=== PATIENT | female | born 1950 | race Caucasian/White ===

== ENCOUNTER → 2017-06-22 | Outpatient (CLI) | payer OTHER ==
[~2017-06-22] MED LIST: CO Q-10100 MG PO; FISH OIL 1,001000 M2 PO; FLONASE 0.05%50 MCG NASAL; IBUPROFEN 200200 M1 PO; MULTIVITAMINS1 EAC7 PO; NORCO 10-325 T1 EACH PO; NORVASC5 MG PO; PROCOSA PO; SUPER CAL-MAG1 EACH PO; TRAMADOL 50 MG50 MG PO; TUMS PO; VITAMIN D-32000 UNIT PO; XARELTO10 MG PO; [UNRECOGNIZED DRUG - OTHER] PO
== END ==
LOC: CAT 09:11
DX: K57.92 Diverticulitis of intestine, part unspecified, without perforation or abscess without bleeding (principal); N20.0 Calculus of kidney; J98.11 Atelectasis; M41.84 Other forms of scoliosis, thoracic region; J98.4 Other disorders of lung; M47.896 Other spondylosis, lumbar region

== ENCOUNTER 2018-04-11 23:33 | Inpatient (IN) | payer OTHER ==
[~2018-04-11] VITALS: Ht 160 cm; Wt 53.1 kg
[2018-04-11 23:33] VITALS: BP 124/89
[~2018-04-11 23:33] MED LIST changes: +ATIVAN0.5 MG PO; +DOXYCYCLINE 10100 MG PO; +FLAGYL500 MG PO
[2018-04-12 00:24] LABS: URINE BILIRUBIN NEGATIVE (Negative); URINE BLOOD 1+ (Negative); URINE CLARITY CLEAR; URINE COLOR YELLOW; URINE GLUCOSE-RANDOM* NEGATIVE (Negative); URINE KETONES 1+ (Negative); URINE NITRITE-REFLEX NEGATIVE (Negative); URINE PROTEIN (DIPSTICK) 1+ (Negative); URINE SPECIFIC GRAVITY 1.025 (1.005-1.035); URINE UROBILINOGEN 0.2 E.U./dl (0.2-1.0)
[2018-04-12 00:25] LABS: URINE LEUKOCYTES-REFLEX 2+ (Negative)
[2018-04-12 00:37] LABS: AMORPHOUS URATES Few /LPF (None Seen); COARSE GRANULAR CASTS 0-3 Few /LPF (None Seen); FINE GRANULAR CASTS 0-3 Few /LPF (None Seen); HYALINE CASTS 0-3 Few /LPF (None Seen); MUCUS 4-6 Moderate strn/LPF (None Seen); SQUAMOUS 0-3 Few /LPF (0-3); URINE RBC 3-10 Few /HPF (0-2); URINE WBC-REFLEX 6-15 Few /HPF (0-5)
[2018-04-12 00:38] LABS: URIC ACID CRYSTALS 0-3 Few /LPF (None Seen)
[2018-04-12 01:47] LABS: ABSOLUTE NEUTROPHILS 8.1 thou/uL (1.4-8.2); BASOPHILS 0.1 % (0.0-2.0); EOSINOPHILS 1.2 % (0.0-3.0); HEMATOCRIT 36.8 % (37.0-47.0); HEMOGLOBIN 12.5 gm/dL (12.0-15.0); LYMPHOCYTES 6.7 % (24.0-44.0); MCH 28.3 pg (26.0-34.0); MCHC 34.1 g/dL (28.0-37.0); MCV 82.9 fL (80.0-100.0); MONOCYTES 4.5 % (1.0-8.0); PLATELET COUNT 218 thou/uL (150-400); POLYS 87.5 % (36.0-66.0); RBC 4.44 mil/uL (4.20-5.00); RDW 13.2 % (10.5-14.5); WBC 9.3 thou/uL (4.0-11.0)
[2018-04-12 01:55] LABS: ANION GAP 11 mmol/L (7-16); BUN 11 mg/dL (7-18); CALCIUM 9.8 mg/dL (8.5-10.1); CHLORIDE 95 mmol/L (98-107); CO2 28 mmol/L (21-32); CREATININE 0.6 mg/dL (0.6-1.0); GLUCOSE 126 mg/dL (74-106); POTASSIUM 3.4 mmol/L (3.5-5.1); SODIUM 134 mmol/L (136-145)
[2018-04-12 02:04] LABS: ALBUMIN 3.2 g/dL (3.4-5.0); LIPASE 59 U/L (73-393); SGOT 21 U/L (15-37); SGPT 18 U/L (30-65); TROPONIN-I <0.06 ng/mL (<0.06)
--- NOTE | 2018-04-12 02:14 | NUR ---
PATIENT TO CT SCAN AT THIS TIME
--- NOTE | 2018-04-12 02:14 | NUR ---
PATIENT WAS IN WAITING ROOM FOR OVER 1.5 HOURS.
[2018-04-12 03:57] VITALS: BP 109/70
[2018-04-12 04:28] VITALS: BP 100/63
[2018-04-12 05:04] VITALS: BP 107/72
[2018-04-12 07:56] VITALS: BP 110/76
--- NOTE | 2018-04-12 08:07 | EKG ---
[address] [place] [address] ELECTROCARDIOGRAM REPORT Name: BENJI CRISTINA Room #: 461-P [facility] IN M.R.#: [id number] ������������������ Admission: 04/12/18 ������������������ Attend Phys: Devonte Dhillon MD Discharge: ������������������ Date of : 46 Report #: [id number] ����������������������������������������������������������������� [id number] THIS REPORT FOR: //name// [facility] ED Test Date: 2018-04-12 Test Time: 02:56:17 Pat Name: BENJI CRISTINA Department: Room: 461 Gender: F Service Correspondent: marilyn : 1950 Requested By: Teto Gerardo Order Number: [id number] MD: Rick Arredondo Measurements Intervals [place] Rate: 79 P: 56 [place]: 146 QRS: 14 QRSD: 94 T: 35 QT: 381 QTc: 437 Interpretive Statements Sinus rhythm Low voltage, precordial leads Compared to ECG 02/19/2014 09:23:05 [place] is shifted rightward criteria for inferior infarct no longer present Electronically Signed On 04-12-2018 8:07:34 CONCRETE POINTER by Rick Arredondo [email or web address] ��������������������������������������������� <ELECTRONICALLY SIGNED> ���������������������������������������� By: Rick Arredondo MD, [facility] ��������������������������������������������� 04/12/18 0807 [id number] 0256 Rick Arredondo MD, [facility] /EPI
[2018-04-12 08:13] LABS: MAGNESIUM 1.9 mg/dL (1.8-2.4)
--- NOTE | 2018-04-12 08:22 | EKG ---
[address] [address] ELECTROCARDIOGRAM REPORT Name: BENJI CRISTINA Room #: 461- ADM IN .R.#: [id number] ������������������ Admission: 04/12/18 ������������������ Attend Phys: Devonte Dhillon MD Discharge: ������������������ Date of : 46 Report #: [id number] ����������������������������������������������������������������� [id number] THIS REPORT FOR: //name// [facility] ED Test Date: 2018-04-11 Test Time: 09:45:21 Pat Name: BENJI CRISTINA Department: Room: 461 Gender: F Roll Former: RADHAG : 1950 Requested By: Devonte Dhillon Order Number: [id number] MD: Rick Arredondo Measurements Intervals [place] Rate: 72 P: -19 [place]: 255 QRS: -48 QRSD: 109 T: 58 QT: 392 QTc: 430 Interpretive Statements Sinus rhythm Prolonged [place] interval Nonspecific intraventricular conduction delay Inferior infarct, old Compared to ECG 02/19/2014 09:23:05 Criteria for inferior infarct now present Ventricular premature complex(es) no longer present intraventricular conduction delay now present Electronically Signed On 04-12-2018 8:22:36 [employer] TEACH[employer] by Rick Arredondo [email or web address] ��������������������������������������������� <ELECTRONICALLY SIGNED> ���������������������������������������� By: Rick Arredondo MD, [facility] ��������������������������������������������� 04/12/18 0822 [id number] 0945 Rick Arredondo MD, [facility] /EPI
--- NOTE | 2018-04-12 14:14 | NUR ---
ASSUMED CARE AT 0700. AXOX4. SBO. SEEN BY GI AND SURGERY. KEPT NPO. K+ REPLCAED. BOWEL SOUNDS PRESENT IN ALL 4 QUADS. ON ZOSYN. NO S/S ACUTE DISTRESS NOTED OR REPORTED AT THIS TIME. WILL CONT TO MONITOR FOR ANY CHANGES IN CONDITION.
[2018-04-12 14:32] VITALS: BP 106/56
[2018-04-12 20:01] VITALS: BP 115/63
--- NOTE | 2018-04-13 04:48 | NUR ---
ASSUMED CARE AT START OF SHIFT PT DENIES N/V OR ABD PAIN , UP TO BATHROOM GAIT STEADY, IV INTACT AND INFUSING WELL. RESTED WELL THROUGHOUT HOURLY ROUNDS. WILL CONINTUE WITH CURRENT PLAN OF CARE.
[2018-04-13 05:18] LABS: ABSOLUTE NEUTROPHILS 3.7 thou/uL (1.4-8.2); BASOPHILS 0.4 % (0.0-2.0); EOSINOPHILS 4.5 % (0.0-3.0); HEMATOCRIT 30.9 % (37.0-47.0); LYMPHOCYTES 15.6 % (24.0-44.0); MCH 27.8 pg (26.0-34.0); MCHC 32.7 g/dL (28.0-37.0); MONOCYTES 7.6 % (1.0-8.0); PLATELET COUNT 206 thou/uL (150-400); POLYS 71.9 % (36.0-66.0); RBC 3.64 mil/uL (4.20-5.00); RDW 12.9 % (10.5-14.5); WBC 5.2 thou/uL (4.0-11.0)
[2018-04-13 05:36] LABS: CREATININE 0.6 mg/dL (0.6-1.0); MAGNESIUM 1.8 mg/dL (1.8-2.4); POTASSIUM 3.6 mmol/L (3.5-5.1)
[2018-04-13 05:43] VITALS: BP 107/59
[2018-04-13 05:46] LABS: HEMOGLOBIN 10.1 gm/dL (12.0-15.0)
[2018-04-13 08:00] VITALS: BP 124/72
[2018-04-13 14:25] VITALS: BP 127/52
--- NOTE | 2018-04-13 16:31 | NUR ---
PT ADMITTED RELATED TO SBO. CM REVIEWED CHART AND SPOKE WITH CARE TEAM. CM MET WITH PT AT BEDSIDE THIS DAY. PT IS A&O X4. CM ROLE INTRODUED. PT INDICATED SHE LIVES ALONE IN A HOUSE WITH 1 STEP TO ENTER AND A FULL FLIGHT OF STEPS INSIDE. PT INDICATED SHE IS MOVING TO [place] AT THE END OF THE MONTH. 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 PT INDICATED SHE ANTICPATES RETURNING HOME ONCE MEDICALLY STABLE. CM TO FOLLOW INDICATED WITH DC PLANNING.
[2018-04-13 19:20] VITALS: BP 141/94
--- NOTE | 2018-04-13 19:33 | NUR ---
PT ALERT AND ORIENTED TIME FOUR, VSS, 97%RA, IVF INFUSING PER ORDER. PT STARTED SOFT DIET FOR LUNCH THIS EVENING STATES SHE DOES NOT FEEL GOOD DUE TO EATING LUNCH. PT REFUSED DINNER. WILL CONTINUE TO MONITOR.
[2018-04-14 03:28] VITALS: BP 109/61
--- NOTE | 2018-04-14 04:38 | NUR ---
ASSUMED CARE AT START OF SHIFT PT C/O ABD PAIN AND LOOSE STOOL, WITH HEADACHE. TYLENOL PO GIVEN WITH ATIVAN. PT HAD 3 LOOSE STOOLS THROUGHOUT HOURLY ROUNDS, CONINTUE TO C/O HEADACHE WHICH IS DECRIBED INTERMITTMENT. IV FLUIDS CONINTUED, WILL FOLLOW CURRENT PLAN OF CARE.
[2018-04-14 07:45] VITALS: BP 124/79
[2018-04-14] MEDS ORDERED: FLAGYL500 M1 PO (09:50)
[2018-04-14] MEDS ORDERED: LEVAQUIN 500 M500 M2 PO (09:52)
--- NOTE | 2018-04-14 10:19 | NUR ---
ASSUMED CARE AT 0700. A/OX4, DENIES PAIN, VSS. ABLE TO MAKE NEEDS KNOWN. DENIES ABD PAIN. WANTS TO GO HOME. ANXIOUS ABOUT MOVE OUT OF STATE. SEEN BY DR NATARAJAN TO BE TX'S HOME TODAY WITH [employer] AND [employer]. CALL LIGHT IN REACH.
[2018-04-14 10:46] VITALS: BP 124/79
--- NOTE | 2018-04-14 14:34 | NUR ---
CARE TEAM INDICATED THAT PT IS MEDICALLY STABLE TO DISCHARGE HOME THIS DAY WITH NO NEEDS. NO CM INTERVENTION INDICATED AT THIS TIME. CASE CLOSED.
== END 2018-04-14 11:49 | disposition home or self-care (01) | DRG 388 ==
LOC: ER 23:33 → 4W 04-12 03:14 → EROBS 04-12 03:14 → 4W 04-12 04:29
PROVIDERS: Emergency Medicine; Nurse Practitioner; ADMIT Hospitalist
DX: K56.600 Partial intestinal obstruction, unspecified as to cause (principal); E43 Unspecified severe protein-calorie malnutrition; N39.0 Urinary tract infection, site not specified; K52.9 Noninfective gastroenteritis and colitis, unspecified; Z96.651 Presence of right artificial knee joint; K56.7 Ileus, unspecified; K08.409 Partial loss of teeth, unspecified cause, unspecified class; E87.6 Hypokalemia; F41.9 Anxiety disorder, unspecified; D64.9 Anemia, unspecified; Z90.49 Acquired absence of other specified parts of digestive tract; Z90.710 Acquired absence of both cervix and uterus; Z79.899 Other long term (current) drug therapy
CPT/HCPCS: 10045